=== PATIENT | female | born 1970 | race African-American/Black ===

== ENCOUNTER 2017-05-14 10:03 | Emergency (ER) | payer MEDICARE, OTHER, MEDICAID ==
[2017-05-14 10:18] VITALS: BP 129/94
[2017-05-14] MEDS ORDERED: Tetan/Diph/Pertus SYR(Tdap)* 0.5 ML SYR(BOOSTRIX) use SYR IM ONE (10:52)
[2017-05-14] MEDS ORDERED: Gelfoam 12-7 ADSORBABL SPONGE* 1 EA SPONGE TOPICAL ONE (10:54)
[2017-05-14] MEDS ORDERED: Gelfoam 12-7 ADSORBABL SPONGE* 1 EA SPONGE ONE (11:22)
--- NOTE | 2017-05-14 13:02 | UC ---
Ramiro Gutierrez Angela, scribed for Kaykay Ly MD on 05/14/17 at 1044 . Laceration HPI - HPI Summary HPI Summary: This pt is a 47 y/o female accompanied by her presenting to [facility] c/o laceration to her left ankle s/p cut with a razor at 0835 today. She reports she was in a [place] and was taking a shower before going to her appointment. She was shaving in the shower when she cut her left ankle with a razor. She notes her last tetanus shot is not UTD. Pt has an old scar from 2 left ankle surgeries in 2013 and 2014 after she had a fall. She is concerned that she has a laceration over this old scar. 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 - Laceration Location: Ankle - left ankle Mechanism Of Injury: Sharp Trauma - with a razor Onset/Duration: Sudden Onset - s/p cut with a razor - Allergies/Home Medications Allergies/Adverse Reactions: Allergies Allergy/AdvReac Type Severity Reaction Status Date / Time Sulfa Antibiotics Allergy Severe Itching Verified 05/14/17 10:18 Acetaminophen [From Vicodin] Allergy Itching Verified 05/14/17 10:18 Hydrocodone [From Vicodin] Allergy Itching Verified 05/14/17 10:18 PMH/Surg Hx/FS Hx/Imm Hx Other Endocrine History: DENIES: diabetes Cardiovascular History: Hypertension - Surgical History Surgical History: Yes Surgery Procedure, Year, and Place: PARTIAL HYSTERECTOMY 07/10/12 HX FIBROIDS AND EXCESSIVE MENSTRUAL BLEEDING, [place] [facility] [place]TENDON REPAIR. LEFT ANKLE 04/08/15 - Family History Known Family History: Negative: Respiratory Disease - Social History Alcohol Use: Occasionally Alcohol Amount: Wine Substance Use Type: None Smoking Status (MU): Former Smoker Amount Used/How Often: 1 PER DAY Have You Smoked in the Last Year: No When Did the Patient Quit Smoking/Using Tobacco: 2004 - Immunization History Most Recent Tetanus Shot: 5 years ago Review of Systems Constitutional: Negative Skin: Other - laceration on left ankle Eyes: Negative ENT: Negative Respiratory: Negative Cardiovascular: Negative Gastrointestinal: Negative Genitourinary: Negative Motor: Negative Neurovascular: Negative Musculoskeletal: Other: - laceration on left ankle Neurological: Negative All Other Systems Reviewed And Are Negative: Yes Physical Exam Triage Information Reviewed: Yes Appearance: Well-Nourished Vital Signs: Initial Vital Signs Temp 97.8 F 05/14/17 10:15 Pulse 71 05/14/17 10:15 Resp 18 05/14/17 10:15 BP 129/94 05/14/17 10:15 Pulse Ox 98 05/14/17 10:15 Vital Signs Reviewed: Yes Eye Exam: Normal ENT Exam: Normal Respiratory Exam: Normal, Other - no dyspnea, no tachypnea, normal respiratory rate Cardiovascular Exam: Normal Cardiovascular: Positive: Other: - heart rate regular, good general skin color, good capillary refill Abdominal Exam: Normal Abdomen Description: Positive: Nontender, No Organomegaly, Soft Bowel Sounds: Positive: Present Musculoskeletal: Positive: Other: - LLE:Partial thickness avulsion laceration 3.8 cm (length) x 0.8 cm (width) x 0.1 cm (depth). There is mild venous oozing, controlled with pressure. No cellulitis. No crepitus. The wound lies immediately posterior to pre-existing surgical scar. Degree of overlap is unclear as the skin is avulsed. Distal pulses are intact. There is distal sensation to light touch present. + cap refill good. + dp / pt pulses present. Neurological Exam: Normal - nonfocal, grossly intact Psychological Exam: Normal - conversing easily and appropriately Skin: Positive: Other - Laceration on LLE, see musculoskeletal Laceration Course/Dx - Course/Dx Course Of Treatment: Tetanus booster here today. Wound cleansed and dressed by myself. Reviewed wound care instructions. Questions as posed answered to the best of my ability. - Differential Dx - Laceration/Wound Provider Diagnoses: Left lateral ankle avulsion laceration Discharge - Discharge Plan Condition: Stable Disposition: HOME Prescriptions: Mupirocin 2% OINT* [Bactroban 2 % Oint*] 1 applic TOPICAL DAILY #1 tube Patient Education Materials: Diphtheria/Acellular Pertussis/Tetanus Booster Vaccine (By injection), Laceration Without Closure (ED) Referrals: Ifeanyi Ramachandran MD [Primary Care Provider] - Additional Instructions: Your tetanus shot was updated today. Follow up here or with your primary care physician in 2 days for wound check. If you do not follow up, please take your dressing down, and place thin layer mupirocin ointment, gauze. No telfa. Dressing change daily. Elevation crucial. Compression sock / stocking when your are able. Change dressing daily for 1 week. Elevate your foot. The documentation as recorded by the Ramiro kaye Angela accurately reflects the service I personally performed and the decisions made by me, Kaykay Ly MD.
== END 2017-05-14 11:45 | disposition home or self-care (01) ==
LOC: UCEAST 10:03
DX: S91.012A Laceration without foreign body, left ankle, initial encounter (principal); W26.8XXA Contact with other sharp object(s), not elsewhere classified, initial encounter; Y93.F1 Activity, caregiving, bathing; Y92.002 Bathroom of unspecified non-institutional (private) residence as the place of occurrence of the external cause; Z23 Encounter for immunization
CPT/HCPCS: 90471; 90715; 99212; A9270-GY; G0463